=== PATIENT | female | born 1985 | race Caucasian/White ===

== ENCOUNTER 2019-05-04 11:09 | Emergency (ER) | payer MEDICAID ==
[~2019-05-04] VITALS: Ht 162.6 cm; Wt 97.0 kg
[2019-05-04 11:15] VITALS: BP 152/86
--- NOTE | 2019-05-04 11:34 | NUR ---
PT HER FOR MULTIPLE MEDICATION REFILLS. PA AT BEDSIDE. PT STATES SHE WAS EVACUATED FROM [place] [facility] AND LEFT MEDICATIONS AT HER HOME. PT TAKES MULTIPLE MEDICATIONS AND HAS EXTENSIVE MEDICAL HX WHICH INCLUDES SPECIALTY DOCTORS. PT AAO X 4, NO MEDICAL COMPLAINTS TODAY. NAD, ROOM AIR, CALL LIGHT WITHIN REACH, FRIEND AT BEDSIDE.
[2019-05-04] MEDS ORDERED: TOPI100T24 PO (11:39)
[2019-05-04] MEDS ORDERED: ONDA8TAB9 PO (11:39)
[2019-05-04] MEDS ORDERED: VENL75TA PO (11:39)
[2019-05-04] MEDS ORDERED: HYDR2TAB29 PO (11:39)
[2019-05-04] MEDS ORDERED: ESCI20TA10 PO (11:39)
[2019-05-04] MEDS ORDERED: LORA-446 PO (11:39)
[2019-05-04] MEDS ORDERED: RIZA10TA5 PO (11:39)
[2019-05-04] MEDS ORDERED: DANT25CA PO (11:39)
--- NOTE | 2019-05-04 11:39 | NUR ---
MED REC COMPLETED.
--- NOTE | 2019-05-04 12:18 | NUR ---
Patient/Caregiver given discharge instructions and they have confirmed that they understand the instructions. Patient ambulatory with steady gait.
== END 2019-05-04 12:24 | disposition home or self-care (01) ==
LOC: ED 12:22
DX: G40.909 Epilepsy, unspecified, not intractable, without status epilepticus (principal); G43.909 Migraine, unspecified, not intractable, without status migrainosus; Z76.0 Encounter for issue of repeat prescription
CPT/HCPCS: 99283